=== PATIENT | female | born 1990 | race Caucasian/White ===

== ENCOUNTER → 2021-07-07 | Outpatient (CLI) | payer OTHER ==
[~2021-07-07] MED LIST: ACYCLOVIR400 MG PO; AUGMENTIN 875-1 EACH PO; BROMFED DM COU473 ML PO; IBUPROFEN600 MG PO
== END ==
LOC: MRI 08:17
DX: E22.9 Hyperfunction of pituitary gland, unspecified (principal)
CPT/HCPCS: 70553; A9577